=== PATIENT | male | born 1940 | race Caucasian/White ===

== ENCOUNTER → 2016-10-07 | Day surgery (SDC) | payer MEDICARE ==
[~2016-10-07] MED LIST: AMIO200T PO; ASPI81TA82 PO; ATROPINE SULFATE 1% OPHT SOLN 2 ML BTL ONE; DEXAMETHASONE SOD PHOS 4 MG/ML VIAL ONE; DOUNEB NEB; DUONEBS NEB; EPINEPHrine HCL (1:1000) 1 MG/ML VIAL ONE; FLURBIPROFEN 0.03% OPHT SOLN 2.5 ML BTL ONE; FURO80TA3 PO; GLYB1TAB51 PO; HYALURONIDASE/LIDOCAINE/BUPIVACAINE 11 ML SYR TL ONE; LACTATED RINGER'S 1000 ML INJ 1,000 ML ONE; LANTUSP SQ; LORT5TAB PO; MIRTA15 PO; NEOMYCIN/POLYMYXIN/DEXAMETHASONE OPTH OINT 3.5 GM TUBE ONE; OMEP20TA OR; PHENYLEPHRINE HCL 2.5 % OPTH SOLN 15 ML BTL ONE; PROM1SUP12 PR; PROPOFOL 200 MG/20 ML AMP IV ONE; RAMI5CAP7 PO; SENN8.6T36 OR; SODIUM CHLORIDE 0.9% INJ 10 ML ONE; TAMS0.4C67 PO; TETRACAINE 0.5% OPTH SOLN 15 ML BTL ONE; TOPR25TA2 PO; TRAM50 PO; TRIAMCINOLONE ACETONIDE 40 MG/ML VIAL ONE; TROPICAMIDE 1% OPHT SOLN 15 ML BTL ONE; ZARO2.5T; ZARO2.5T PO; ZOCO10TA PO; ZOFR4TAB3 SL; ZOLO20CO PO; ceFAZolin INJ 1,000 MG VIAL ONE
--- NOTE | 2016-10-21 13:49 | MP ---
cc: RILEY DORANTES MD DATE OF SURGERY 10/17/2016 PREOPERATIVE DIAGNOSIS Proliferative diabetic retinopathy, non-clearing vitreous hemorrhage right eye. POSTOPERATIVE DIAGNOSIS Proliferative diabetic retinopathy, non-clearing vitreous hemorrhage right eye. PROCEDURE Pars plana vitrectomy and endolaser, right eye. ANESTHESIA MAC. SURGEON Riley Dorantes MD. COMPLICATIONS None PROCEDURE After informed consent was obtained, the patient was brought to the operating room and placed under brief anesthesia with propofol. 10 cc of a 50/50 mixture of 0.75% Marcaine and 2% lidocaine was placed in a modified [place] lid block as well as a peribulbar injection. The patient was then prepared and draped in the usual sterile fashion. A wire lid speculum was placed in the patient's right eye. 23-gauge vitrectomy cannulas were then placed in the lower temporal, supratemporal and supranasal quadrants 3 millimeters posterior to the corneoscleral limbus. Infusion cannula was placed lower temporally. Core vitrectomy was then performed. There was already a posterior vitreous detachment and no significant membranes were present. There were vitrectomies carried out as far as possible to the vitreous base. Endolaser was used to place panretinal photocoagulation. Careful indirect ophthalmoscopy with scleral depression was then performed and no peripheral retinal breaks were noted. The three vitrectomy cannulas were then removed. Subconjunctival injections of dexamethasone and Ancef were placed. An atropine drop, Maxitrol ointment, patch and shield were then applied. The patient tolerated the procedure well. There were no complications. He will follow up tomorrow in our [place] office. Riley Dorantes MD TAB/DJL /9:27 AM /1:46 PM
== END | disposition home or self-care (01) ==
LOC: ESDC 11:46
PROVIDERS: ATTEND Ophthalmology Retina Specialist
DX: H43.11 Vitreous hemorrhage, right eye (principal); E11.3593 Type 2 diabetes mellitus with proliferative diabetic retinopathy without macular edema, bilateral
CPT/HCPCS: 00145; 67043; J0171; J0690; J1100; J3301; J7120